=== PATIENT | female | born 1960 | race Caucasian/White ===

== ENCOUNTER 2021-11-16 17:28 | Emergency (ER) | payer MEDICARE ==
[2021-11-16 19:56] LABS: BASOPHIL 0.6 % (0-2); EOSINOPHIL 3.1 % (0-5); HCT 32.1 % (37.0-47.0); HGB 10.7 g/dl (12.5-16.0); LYMPHOCYTE 26.8 % (15-48); MCH 30.1 pg (25.0-31.0); MCHC 33.3 g/dL (32.0-36.0); MCV 90.4 fL (78.0-100.0); MONOCYTE 9.3 % (0-12); NEUTROPHIL 58.9 % (41-80); NRBC 0; PLT 173 K/uL (150-400); RBC 3.55 M/uL (4.20-5.40); RDW 14.1 % (11.5-14.0); WBC 8.4 K/uL (4.0-10.5)
[2021-11-16 20:13] LABS: ALBUMIN 2.3 g/dL (3.4-5.0); BILIRUBIN - TOTAL 0.2 mg/dL (0.2-1.0); BUN/CREAT RATIO (CALC) 12.4 RATIO; CREATININE 1.86 mg/dL (0.51-0.95); GLOBULIN (CALCULATION) 3.7 g/dL; POTASSIUM 3.8 mmol/L (3.5-5.1)
[2021-11-16 20:30] LABS: INFLUENZA A NAA NEGATIVE (NEGATIVE)
[2021-11-16 20:37] LABS: CORONAVIRUS 2019 SARS-COV-2 POSITIVE (NEGATIVE)
[2021-11-16 20:38] LABS: BILIRUBIN NEGATIVE (NEGATIVE); BLOOD 3+ Ery/uL (NEGATIVE); COLOR YELLOW (YELLOW); GLUCOSE (U) TRACE mg/dL (NORMAL); LEUKOCYTES NEGATIVE Leu/uL (NEGATIVE); NITRITE NEGATIVE (NEGATIVE); PROTEIN 3+ mg/dL (NEGATIVE); SPECIFIC GRAVITY 1.025 (1.001-1.030); UROBILINOGEN 0.2 mg/dL (0.2-1.0)
[2021-11-16 20:53] LABS: CLARITY SLIGHTLY HAZY (CLEAR)
[2021-11-16 20:55] LABS: BACTERIA 1+
[2021-11-16] MEDS ORDERED: TESSALON PERLE100 MG PO ×2 (22:12→22:15)
[2021-11-16] MEDS ORDERED: PROAIR HFA8.5 GM INH ×2 (22:12→22:15)
== END 2021-11-16 22:50 | disposition home or self-care (01) ==
LOC: FER 17:28
PROVIDERS: Physician Assistant
DX: U07.1 COVID-19 (principal); E10.22 Type 1 diabetes mellitus with diabetic chronic kidney disease; I12.9 Hypertensive chronic kidney disease with stage 1 through stage 4 chronic kidney disease, or unspecified chronic kidney disease; N18.9 Chronic kidney disease, unspecified; Z88.5 Allergy status to narcotic agent; Z79.4 Long term (current) use of insulin
CPT/HCPCS: 36415; 71045; 80053; 81001; 85025; 94640; J1100; J7030; U0002